=== PATIENT | male | born 1975 | race Caucasian/White ===

== ENCOUNTER → 2018-12-17 | Outpatient (REF) ==
--- NOTE | 2018-12-17 11:39 | Diagnostic Imaging Report ---
INDICATION: Left groin pain AP and frog-leg views of left hip are obtained. FINDINGS: There are calcified phleboliths noted in the left hemipelvis. No acute fracture or dislocation is identified. No abnormal lytic or sclerotic focus is seen, and there is no radiopaque foreign body. IMPRESSION: No acute abnormality. Dictated by: Dictated on workstation # [id number]
--- NOTE | 2018-12-17 12:04 | Diagnostic Imaging Report ---
INDICATION: Fall with left knee injury and pain. EXAMINATION: AP, oblique and lateral views of the left knee are obtained. FINDINGS: No acute fracture or dislocation is identified. No abnormal lytic or sclerotic focus is seen, and there is no radiopaque foreign body. IMPRESSION: No acute abnormality. Dictated by: Dictated on workstation # [id number]
== END | disposition home or self-care (01) ==
LOC: RAD 10:54
PROVIDERS: ATTEND Nurse Practitioner Family
CPT/HCPCS: 73502; 73562

== ENCOUNTER → 2018-12-18 | Outpatient (REF) ==
--- NOTE | 2018-12-18 14:20 | Diagnostic Imaging Report ---
PROCEDURE: MRI left joint lower extremity without contrast. TECHNIQUE: Multiplanar, multisequence MR imaging of the left knee was performed without contrast. COMPARISON: Left knee radiographs of 12/17/2018 INDICATION: Left knee pain after jumping off of ladder 2 weeks ago. FINDINGS: MENISCI Medial meniscus: Minimal truncation of the body and posterior horn of the medial meniscus may represent a small amount of degenerative free edge fraying. No displaced tear of the medial meniscus. Lateral meniscus: Normal. LIGAMENTS ACL: Intact. PCL: Intact. MCL: Intact. LCL: The lateral collateral ligamentous complex is intact. EXTENSOR MECHANISM The extensor mechanism is intact. CARTILAGE Medial compartment: Medial compartment articular cartilage is well preserved without focal high-grade chondromalacia. Lateral compartment: The lateral compartment articular cartilage is preserved without high-grade chondromalacia. Patellofemoral compartment: The patellofemoral articular cartilage is well preserved without high-grade chondromalacia. BONE No fracture, stress fracture or osteonecrosis. SOFT TISSUE Small knee joint effusion. Thickened medial synovial plica. No Ga's cyst. A small amount of edema is present within the intermuscular fat posterior to the distal femur. IMPRESSION: 1. No acute meniscal tear. Minimal degenerative free edge tearing within the body and posterior horn of the medial meniscus. 2. Cruciate and collateral ligaments are intact. 3. Small knee joint effusion. 4. Thickened medial synovial plica. Dictated by: Dictated on workstation # [id number]
== END | disposition home or self-care (01) ==
LOC: RAD 12:15
PROVIDERS: ATTEND Nurse Practitioner Family
CPT/HCPCS: 73721